=== PATIENT | male | born 1990 | race Caucasian/White ===

== ENCOUNTER 2017-09-26 22:10 | Emergency (ER) | payer MEDICAID, OTHER ==
[~2017-09-26] VITALS: Ht 175.3 cm; Wt 77.1 kg
[2017-09-26] MEDS ORDERED: ONDANSETRON 2MG/ML, 2ML ONE (23:51)
[2017-09-26] MEDS ORDERED: KETOROLAC 30 MG/1 ML ONE (23:51)
[2017-09-26 23:52] LABS: HEMATOCRIT 56.3 % (39.2-51.8); HEMOGLOBIN 19.2 g/dL (13.7-18.0); WHITE BLOOD COUNT 10.7 x10^3/uL (3.4-10)
[2017-09-27] MEDS ORDERED: ONDANSETRON 2MG/ML, 2ML IVPush ONE
[2017-09-27] MEDS ORDERED: KETOROLAC 30 MG/1 ML IVPush ONE
[2017-09-27 00:03] LABS: ASPARTATE AMINO TRANSFERASE 32 U/L (15-37); BLOOD UREA NITROGEN 18 mg/dL (7-18)
[2017-09-27] MEDS ORDERED: METOCLOPRAMIDE 5 MG/ML, 2ML ONE (01:19)
[2017-09-27] MEDS ORDERED: METOCLOPRAMIDE 5 MG/ML, 2ML IVPush ONE (01:30)
[2017-09-27] MEDS ORDERED: DIPHENHYDRAMINE 50 MG/ML, 1ML ONE (01:40)
[2017-09-27] MEDS ORDERED: DIPHENHYDRAMINE 50 MG/ML, 1ML IVPush ONE (02:00)
[2017-09-27] MEDS ORDERED: SODIUM CHLORIDE 0.9% 1,000ML IVBOLUS ONE ×2 (02:00)
[2017-09-27 03:50] VITALS: BP 95/62
== END 2017-09-27 04:11 | disposition home or self-care (01) ==
LOC: ED 23:10
DX: B34.9 Viral infection, unspecified (principal); N28.9 Disorder of kidney and ureter, unspecified
CPT/HCPCS: 36415; 80053; 84132; 85025; 96361; 96374; 96375; 99285; J1200; J1885; J2405; J2765; J7030

== ENCOUNTER 2017-12-09 09:58 | Day surgery (SDC) | payer MEDICAID ==
[~2017-12-09] VITALS: Ht 175.3 cm; Wt 76.2 kg
[2017-12-09 10:32] VITALS: BP 118/78
[2017-12-09] MEDS ORDERED: HYDR-3240 PO (10:39)
[2017-12-09] MEDS ORDERED: LACTATED RINGERS 1,000 ML IV SCH (10:39)
[2017-12-09] MEDS ORDERED: LIDOCAINE 1%, 2ML ONE (10:40)
[2017-12-09] MEDS ORDERED: EPINEPHRINE 1 MG/ML, 1ML ONE (10:56)
[2017-12-09] MEDS ORDERED: NEOSPORIN OINT, 15GM ONE (10:56)
[2017-12-09] MEDS ORDERED: BUPIVACAINE/PF 0.5% ONE (10:56)
[2017-12-09] MEDS ORDERED: LIDOCAINE 1%, 2ML SQ PRN (11:00)
[2017-12-09] MEDS ORDERED: SUCCINYLCHOLINE 20 MG/ML, 10ML ONE (11:11)
[2017-12-09] MEDS ORDERED: CEFAZOLIN 1,000 MG ONE (11:11)
[2017-12-09] MEDS ORDERED: PROPOFOL 10 MG/ML, 20ML ONE (11:11)
[2017-12-09] MEDS ORDERED: DEXAMETHASONE 4 MG/ML, 1ML ONE (11:11)
[2017-12-09] MEDS ORDERED: ONDANSETRON 2MG/ML, 2ML ONE (11:11)
[2017-12-09] MEDS ORDERED: NEOSTIGMINE 1 MG/ML, 10ML ONE (11:11)
[2017-12-09] MEDS ORDERED: GLYCOPYRROLATE 0.2MG/1ML, 5ML ONE (11:11)
[2017-12-09] MEDS ORDERED: ROCURONIUM 10 MG/ML,10ML ONE (11:11)
[2017-12-09] MEDS ORDERED: ACETAMINOPHEN 325 MG TABLET PO PRN (12:00)
[2017-12-09] MEDS ORDERED: DIAZEPAM 5 MG/ML, 2ML IVPush PRN (12:00)
[2017-12-09] MEDS ORDERED: MEPERIDINE/PF 25MG/0.5ML IVPush PRN (12:00)
[2017-12-09] MEDS ORDERED: EPHEDRINE 50 MG/ML, 1ML IVPush PRN (12:00)
[2017-12-09] MEDS ORDERED: HYDROcodone/APAP 7.5-325MG/15ML UDC PO PRN (12:00)
[2017-12-09] MEDS ORDERED: PROMETHAZINE 12.5 MG SUPP PR PRN (12:00)
[2017-12-09] MEDS ORDERED: LABETALOL 5MG/ML, 20ML IV PRN (12:00)
[2017-12-09] MEDS ORDERED: ALBUTEROL SULFATE 2.5 MG/3 ML NPPB PRN (12:00)
[2017-12-09] MEDS ORDERED: METOPROLOL 1 MG/ML, 5ML IV PRN (12:00)
[2017-12-09] MEDS ORDERED: MIDAZOLAM 1 MG/ML, 2ML IV PRN (12:00)
[2017-12-09] MEDS ORDERED: OXYcodone 5 MG/5 ML ORAL.SOL UDC PO PRN (12:00)
[2017-12-09] MEDS ORDERED: hydrALAzine 20 MG/ML, 1ML IV PRN (12:00)
[2017-12-09] MEDS ORDERED: ONDANSETRON 2MG/ML, 2ML IVPush PRN (12:00)
[2017-12-09] MEDS ORDERED: FENTANYL PF 100 MCG/2ML IV PRN (12:00)
[2017-12-09] MEDS ORDERED: HYDROmorphone 1 MG/ML, 1ML IV PRN (12:00)
[2017-12-09] MEDS ORDERED: ACETAMINOPHEN 650 MG/20.3 ML UDC ONE (12:46)
[2017-12-09] MEDS ORDERED: OXYcodone 5 MG/5 ML ORAL.SOL UDC ONE (12:46)
== END 2017-12-09 14:45 ==
LOC: OUT 09:58
PROVIDERS: ATTEND Orthopaedic Surgery
DX: S42.002A Fracture of unspecified part of left clavicle, initial encounter for closed fracture (principal); X58.XXXA Exposure to other specified factors, initial encounter; Y93.89 Activity, other specified; Y92.89 Other specified places as the place of occurrence of the external cause; Y99.8 Other external cause status
CPT/HCPCS: 23515; 73000; 76000; J0171; J0330; J0690; J1100; J2405; J2704; J2710; J3490; J7120; C1713

== ENCOUNTER 2018-07-26 15:56 | Emergency (ER) | payer MEDICAID ==
[~2018-07-26] VITALS: Ht 175.3 cm; Wt 77.0 kg
[~2018-07-26 15:56] MED LIST: HYDR-3240 PO
[2018-07-26 16:22] LABS: BASOPHILS # (AUTO) 0.06 x10^3/uL (0-0.1); BASOPHILS % (AUTO) 1 % (0-1); EOSINOPHILS # (AUTO) 0.04 x10^3/uL (0-0.4); EOSINOPHILS % (AUTO) 1 % (1-7); LYMPHOCYTES % (AUTO) 28 % (22-44); MD NO; MEAN CORPUSCULAR HEMOGLOBIN 31.2 pg (27.5-34.5); MEAN CORPUSCULAR HGB CONC 33.9 g/dL (33.2-36.2); MEAN PLATELET VOLUME 7.7 fL (7.4-10.4); MONOCYTES # (AUTO) 0.48 x10^3/uL (0.2-0.8); MONOCYTES % (AUTO) 9 % (2-9); NEUTROPHILS # (AUTO) 3.37 x10^3/uL (1.8-6.8); NEUTROPHILS % (AUTO) 62 % (42-75); PLATELET COUNT 251 x10^3/uL (130-400); RED BLOOD COUNT 4.99 x10^6/uL (4.38-5.82); RED CELL DISTRIBUTION WIDTH 13.1 % (9.4-14.8)
[2018-07-26 16:31] LABS: ALANINE AMINOTRANSFERASE 61 U/L (12-78); ALBUMIN 4.1 g/dL (3.4-5.0); ANION GAP 8 mmol/L (5-15); CALCIUM 9.4 mg/dL (8.5-10.1); CHLORIDE 109 mmol/L (98-107); CREATININE 1.05 mg/dL (0.7-1.3)
[2018-07-26 16:33] LABS: ALKALINE PHOSPHATASE 92 U/L (45-117); BILIRUBIN,TOTAL 0.3 mg/dL (0.2-1.0); TOTAL PROTEIN 7.3 g/dL (6.4-8.2)
[2018-07-26] MEDS ORDERED: LORazepam 1MG TABLET ONE (16:58)
[2018-07-26] MEDS ORDERED: MAALOX/HYOSCYAMINE/LIDOCAINE 45 ML BTL ONE (16:59)
[2018-07-26] MEDS ORDERED: MAALOX/HYOSCYAMINE/LIDOCAINE 45 ML BTL PO ONE (17:00)
[2018-07-26] MEDS ORDERED: LORazepam 1MG TABLET PO ONE (17:00)
[2018-07-26] MEDS ORDERED: SODIUM CHLORIDE 0.9% 1,000ML IVBOLUS ONE (17:30)
[2018-07-26] MEDS ORDERED: MORPHINE SULFATE 4 MG/ML, 1ML IVPush PRN (17:30)
[2018-07-26] MEDS ORDERED: SODIUM CHLORIDE FLUSH 10ML SYR IVF ONE (17:30)
[2018-07-26] MEDS ORDERED: MORPHINE SULFATE 4 MG/ML, 1ML ONE (17:47)
[2018-07-26 18:29] VITALS: BP 162/74
== END 2018-07-26 18:34 | disposition home or self-care (01) ==
LOC: ED 18:00
DX: R07.89 Other chest pain (principal); R06.02 Shortness of breath; F41.1 Generalized anxiety disorder
CPT/HCPCS: 36415; 71046; 80053; 83690; 83735; 85025; 96374; 99285; J7030

== ENCOUNTER 2018-08-16 11:24 | Emergency (ER) | payer MEDICAID ==
[~2018-08-16] VITALS: Ht 172.7 cm; Wt 76.3 kg
[2018-08-16] MEDS ORDERED: ONDANSETRON ODT 4 MG PO ONE (12:00)
[2018-08-16] MEDS ORDERED: ONDANSETRON ODT 4 MG ONE (12:02)
[2018-08-16 12:34] LABS: BASOPHILS # (AUTO) 0.03 x10^3/uL (0-0.1); BASOPHILS % (AUTO) 1 % (0-1); EOSINOPHILS # (AUTO) 0.02 x10^3/uL (0-0.4); EOSINOPHILS % (AUTO) 0 % (1-7); LYMPHOCYTES # (AUTO) 1.36 x10^3/uL (1-3.4); LYMPHOCYTES % (AUTO) 19 % (22-44); MD NO; MEAN CORPUSCULAR HEMOGLOBIN 31.9 pg (27.5-34.5); MEAN CORPUSCULAR HGB CONC 34.5 g/dL (33.2-36.2); MEAN CORPUSCULAR VOLUME 92.5 fL (81-97); MEAN PLATELET VOLUME 8.2 fL (7.4-10.4); MONOCYTES # (AUTO) 0.44 x10^3/uL (0.2-0.8); MONOCYTES % (AUTO) 6 % (2-9); NEUTROPHILS # (AUTO) 5.19 x10^3/uL (1.8-6.8); NEUTROPHILS % (AUTO) 74 % (42-75); PLATELET COUNT 236 x10^3/uL (130-400); RED BLOOD COUNT 5.33 x10^6/uL (4.38-5.82); RED CELL DISTRIBUTION WIDTH 12.9 % (9.4-14.8)
[2018-08-16 12:45] LABS: ALBUMIN 4.6 g/dL (3.4-5.0); ANION GAP 5 mmol/L (5-15); CALCIUM 9.7 mg/dL (8.5-10.1); CHLORIDE 105 mmol/L (98-107)
[2018-08-16 12:48] LABS: ALANINE AMINOTRANSFERASE 48 U/L (12-78); ALKALINE PHOSPHATASE 89 U/L (45-117); BILIRUBIN,TOTAL 0.6 mg/dL (0.2-1.0); CREATININE 1.19 mg/dL (0.7-1.3); TOTAL PROTEIN 8.3 g/dL (6.4-8.2)
[2018-08-16 12:59] VITALS: BP 140/91
== END 2018-08-16 13:40 | disposition home or self-care (01) ==
LOC: ED 13:34
DX: R11.2 Nausea with vomiting, unspecified (principal); R19.7 Diarrhea, unspecified; R10.84 Generalized abdominal pain; F41.1 Generalized anxiety disorder
CPT/HCPCS: 36415; 80053; 83690; 85025; 99284; Q0162

== ENCOUNTER 2019-09-16 18:08 | Inpatient (IN) | payer MEDICAID ==
[~2019-09-16] VITALS: Ht 175.3 cm; Wt 73.3 kg
--- NOTE | 2019-09-16 18:22 | NUR ---
ATTEMPTED TO CALL PT TO TRIAGE FOR EKG- NIL.
[2019-09-16] MEDS ORDERED: MORPHINE SULFATE 4 MG/ML, 1ML ONE ×2 (19:51→21:09)
[2019-09-16] MEDS: MORPHINE SULFATE 4 MG/ML, 1ML IVPush PRN ×2 (19:55→21:11)
[2019-09-16] MEDS ORDERED: VANCOMYCIN PER PHARMACY MC ONE (20:00)
[2019-09-16] MEDS ORDERED: AMPICILLIN/SULBACTAM 3 GM in SODIUM CHLORIDE 0.9% 100 ML IV ONE (20:00)
[2019-09-16] MEDS ORDERED: VANCOMYCIN 1,400 MG in SODIUM CHLORIDE 0.9% 250 ML IV ONE (20:00)
[2019-09-16] MEDS ORDERED: SODIUM CHLORIDE 0.9% 1,000ML IVBOLUS ONE ×2 (20:00→22:00)
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
[2019-09-16 20:15] LABS: BASOPHILS # (AUTO) 0.03 x10^3/uL (0-0.1); BASOPHILS % (AUTO) 0 % (0-1); EOSINOPHILS % (AUTO) 0 % (1-7); LYMPHOCYTES # (AUTO) 0.94 x10^3/uL (1-3.4); LYMPHOCYTES % (AUTO) 7 % (22-44); MD NO; MEAN CORPUSCULAR HEMOGLOBIN 31.8 pg (27.5-34.5); MEAN CORPUSCULAR HGB CONC 33.4 g/dL (33.2-36.2); MEAN CORPUSCULAR VOLUME 95.2 fL (81-97); MEAN PLATELET VOLUME 8.2 fL (7.4-10.4); MONOCYTES # (AUTO) 0.93 x10^3/uL (0.2-0.8); MONOCYTES % (AUTO) 7 % (2-9); NEUTROPHILS # (AUTO) 12.22 x10^3/uL (1.8-6.8); NEUTROPHILS % (AUTO) 87 % (42-75); PLATELET COUNT 223 x10^3/uL (130-400); RED BLOOD COUNT 4.18 x10^6/uL (4.38-5.82); RED CELL DISTRIBUTION WIDTH 12.5 % (9.4-14.8)
[2019-09-16 20:18] LABS: ALBUMIN 2.8 g/dL (3.4-5.0); ANION GAP 3 mmol/L (5-15); CALCIUM 8.5 mg/dL (8.5-10.1); CHLORIDE 107 mmol/L (98-107); CREATININE 1.05 mg/dL (0.7-1.3)
--- NOTE | 2019-09-16 20:18 | NUR ---
XR DIFFUSE SOFT TISSUE SWELLING OVER THE DORSAL FOREFOOT. NO FX.
--- NOTE | 2019-09-16 21:06 | NUR ---
PT FEBRILE, C/O PAIN, WILL NOTIFY .
[2019-09-16] MEDS ORDERED: ACETAMINOPHEN 500 MG TABLET ONE (21:09)
[2019-09-16] MEDS ORDERED: ACETAMINOPHEN 500 MG TABLET PO ONE (21:30)
[2019-09-16] MEDS ORDERED: ACETAMINOPHEN 325 MG TABLET PO ONE (21:30)
--- NOTE | 2019-09-16 21:52 | NUR ---
PT AWARE OF ADMISSION. 2ND LITER HANGING. PT WAS RESTING CALMLY DROWSING, STS PAIN IS 9/10 WHEN ASKED BUT STS FEELS BETTER AFTER MORPHINE.
--- NOTE | 2019-09-16 22:07 | NUR ---
REPORT TO MALIKA RN 3 NE.
[2019-09-16 22:42] VITALS: BP 116/73
[2019-09-16] MEDS ORDERED: PHARMACOKINETIC MONITORING MC PRN (23:45)
[2019-09-16] MEDS ORDERED: PHARMACOKINETIC CONSULTATION MC ONE (23:45)
[2019-09-17] MEDS ORDERED: VANCOMYCIN PER PHARMACY MC PRN
[2019-09-17] MEDS: VANCOMYCIN 1,400 MG in SODIUM CHLORIDE 0.9% 250 ML IV SCH ×2 (00:13→12:36)
[2019-09-17] MEDS ORDERED: ONDANSETRON ODT 4 MG PO PRN (00:30)
[2019-09-17] MEDS ORDERED: DOCUSATE 100 MG CAPSULE PO PRN (00:30)
[2019-09-17] MEDS ORDERED: ACETAMINOPHEN 325 MG TABLET PO PRN (00:30)
[2019-09-17] MEDS ORDERED: TEMAZEPAM 15 MG CAPSULE PO PRN (00:30)
[2019-09-17] MEDS ORDERED: ENALAPRILAT 1.25 MG/ML, 2ML IVPush PRN (00:30)
[2019-09-17 00:59] VITALS: BP 112/72
[2019-09-17] MEDS: AMPICILLIN/SULBACTAM 3 GM in SODIUM CHLORIDE 0.9% 100 ML IV SCH ×4 (02:31→19:32)
[2019-09-17] MEDS: HYDROcodone/APAP 5/325 TABLET PO PRN ×4 (02:32→19:33)
[2019-09-17 08:00] VITALS: BP 120/80
[2019-09-17 14:00] VITALS: BP 141/76
[2019-09-17] MEDS ORDERED: KETOROLAC 30 MG/1 ML IVPush ONE (18:00)
[2019-09-17 19:54] VITALS: BP 130/79
[2019-09-18] MEDS: HYDROcodone/APAP 5/325 TABLET PO PRN ×5 (00:15→22:19)
[2019-09-18] MEDS: VANCOMYCIN 1,400 MG in SODIUM CHLORIDE 0.9% 250 ML IV SCH (00:16)
[2019-09-18 01:58] VITALS: BP 114/73
[2019-09-18] MEDS: AMPICILLIN/SULBACTAM 3 GM in SODIUM CHLORIDE 0.9% 100 ML IV SCH ×2 (03:02→08:17)
[2019-09-18 06:16] LABS: BASOPHILS # (AUTO) 0.03 x10^3/uL (0-0.1); BASOPHILS % (AUTO) 0 % (0-1); EOSINOPHILS # (AUTO) 0.14 x10^3/uL (0-0.4); EOSINOPHILS % (AUTO) 1 % (1-7); LYMPHOCYTES # (AUTO) 1.69 x10^3/uL (1-3.4); LYMPHOCYTES % (AUTO) 16 % (22-44); MD NO; MEAN CORPUSCULAR HEMOGLOBIN 31.6 pg (27.5-34.5); MEAN CORPUSCULAR HGB CONC 33.1 g/dL (33.2-36.2); MEAN CORPUSCULAR VOLUME 95.6 fL (81-97); MEAN PLATELET VOLUME 8.2 fL (7.4-10.4); MONOCYTES # (AUTO) 0.82 x10^3/uL (0.2-0.8); MONOCYTES % (AUTO) 8 % (2-9); NEUTROPHILS # (AUTO) 7.75 x10^3/uL (1.8-6.8); NEUTROPHILS % (AUTO) 74 % (42-75); PLATELET COUNT 203 x10^3/uL (130-400); RED BLOOD COUNT 4.23 x10^6/uL (4.38-5.82); RED CELL DISTRIBUTION WIDTH 12.5 % (9.4-14.8)
[2019-09-18 06:24] LABS: ANION GAP 3 mmol/L (5-15); CALCIUM 9.1 mg/dL (8.5-10.1); CHLORIDE 107 mmol/L (98-107)
[2019-09-18 07:08] VITALS: BP 125/81
[2019-09-18] MEDS: CEFTRIAXONE PMX 1GM/50ML 50 ML IV SCH (11:44)
[2019-09-18 12:01] VITALS: BP 107/69
[2019-09-18] MEDS: KETOROLAC 30 MG/1 ML IVPush SCH ×2 (12:41→17:51)
[2019-09-18 18:40] VITALS: BP 126/79
[2019-09-19] MEDS: KETOROLAC 30 MG/1 ML IVPush SCH ×4 (00:16→18:19)
[2019-09-19 00:20] VITALS: BP 114/73
[2019-09-19] MEDS: HYDROcodone/APAP 5/325 TABLET PO PRN ×5 (06:35→22:27)
[2019-09-19 06:57] VITALS: BP 127/83
[2019-09-19 08:26] LABS: BASOPHILS # (AUTO) 0.03 x10^3/uL (0-0.1); BASOPHILS % (AUTO) 0 % (0-1); EOSINOPHILS # (AUTO) 0.07 x10^3/uL (0-0.4); EOSINOPHILS % (AUTO) 1 % (1-7); LYMPHOCYTES # (AUTO) 1.66 x10^3/uL (1-3.4); LYMPHOCYTES % (AUTO) 15 % (22-44); MD NO; MEAN CORPUSCULAR HEMOGLOBIN 30.9 pg (27.5-34.5); MEAN CORPUSCULAR HGB CONC 32.8 g/dL (33.2-36.2); MEAN CORPUSCULAR VOLUME 94.2 fL (81-97); MEAN PLATELET VOLUME 7.6 fL (7.4-10.4); MONOCYTES # (AUTO) 0.88 x10^3/uL (0.2-0.8); MONOCYTES % (AUTO) 8 % (2-9); NEUTROPHILS # (AUTO) 8.45 x10^3/uL (1.8-6.8); NEUTROPHILS % (AUTO) 76 % (42-75); PLATELET COUNT 273 x10^3/uL (130-400); RED BLOOD COUNT 4.27 x10^6/uL (4.38-5.82); RED CELL DISTRIBUTION WIDTH 12.4 % (9.4-14.8)
[2019-09-19 08:35] LABS: ALANINE AMINOTRANSFERASE 43 U/L (12-78); ALBUMIN 2.6 g/dL (3.4-5.0); CALCIUM 9.2 mg/dL (8.5-10.1); CHLORIDE 106 mmol/L (98-107); CREATININE 0.87 mg/dL (0.7-1.3)
[2019-09-19 08:36] VITALS: BP 115/77
[2019-09-19 08:38] LABS: ALKALINE PHOSPHATASE 85 U/L (45-117); BILIRUBIN,TOTAL 0.3 mg/dL (0.2-1.0)
[2019-09-19 08:43] LABS: ANION GAP 6 mmol/L (5-15)
[2019-09-19] MEDS ORDERED: GADOTERATE 10 MMOL/20 ML SYR ONE (11:57)
[2019-09-19] MEDS: CEFTRIAXONE PMX 1GM/50ML 50 ML IV SCH (12:34)
[2019-09-19 12:50] VITALS: BP 123/78
[2019-09-19 19:15] VITALS: BP 130/78
[2019-09-20] MEDS: KETOROLAC 30 MG/1 ML IVPush SCH ×4 (00:07→17:05)
[2019-09-20 01:27] VITALS: BP 117/74
[2019-09-20] MEDS: HYDROcodone/APAP 5/325 TABLET PO PRN ×3 (06:18→17:06)
[2019-09-20 08:03] VITALS: BP 120/76
[2019-09-20 08:24] LABS: BASOPHILS # (AUTO) 0.04 x10^3/uL (0-0.1); BASOPHILS % (AUTO) 1 % (0-1); EOSINOPHILS # (AUTO) 0.08 x10^3/uL (0-0.4); EOSINOPHILS % (AUTO) 1 % (1-7); LYMPHOCYTES # (AUTO) 1.75 x10^3/uL (1-3.4); LYMPHOCYTES % (AUTO) 25 % (22-44); MD NO; MEAN CORPUSCULAR HEMOGLOBIN 30.8 pg (27.5-34.5); MEAN CORPUSCULAR VOLUME 93.4 fL (81-97); MEAN PLATELET VOLUME 7.6 fL (7.4-10.4); MONOCYTES # (AUTO) 0.64 x10^3/uL (0.2-0.8); MONOCYTES % (AUTO) 9 % (2-9); NEUTROPHILS # (AUTO) 4.43 x10^3/uL (1.8-6.8); NEUTROPHILS % (AUTO) 64 % (42-75); PLATELET COUNT 281 x10^3/uL (130-400); RED CELL DISTRIBUTION WIDTH 12.3 % (9.4-14.8)
[2019-09-20 08:27] LABS: ALANINE AMINOTRANSFERASE 47 U/L (12-78); ALBUMIN 2.6 g/dL (3.4-5.0); ANION GAP 5 mmol/L (5-15); CALCIUM 9.6 mg/dL (8.5-10.1); CHLORIDE 106 mmol/L (98-107); CREATININE 0.92 mg/dL (0.7-1.3)
[2019-09-20 08:29] LABS: ALKALINE PHOSPHATASE 75 U/L (45-117); BILIRUBIN,TOTAL 0.3 mg/dL (0.2-1.0); TOTAL PROTEIN 7.3 g/dL (6.4-8.2)
[2019-09-20] MEDS: CEFTRIAXONE PMX 1GM/50ML 50 ML IV SCH (12:19)
[2019-09-20 13:40] VITALS: BP 124/79
[2019-09-20] MEDS ORDERED: CEFTRIAXONE PMX 2GM/50ML 50 ML IV SCH (15:00)
[2019-09-20 19:44] VITALS: BP 126/80
[2019-09-21 00:27] VITALS: BP 135/87
[2019-09-21] MEDS: HYDROcodone/APAP 5/325 TABLET PO PRN ×2 (00:32→06:20)
[2019-09-21] MEDS: KETOROLAC 30 MG/1 ML IVPush SCH ×3 (00:33→11:52)
[2019-09-21 05:55] VITALS: BP 122/74
[2019-09-21 06:09] VITALS: BP 122/74
[2019-09-21] MEDS ORDERED: HYDR-3237 PO (10:29)
[2019-09-21] MEDS ORDERED: IBUP-1222 PO (10:29)
[2019-09-21] MEDS ORDERED: CEFD300C37 PO (10:29)
== END 2019-09-21 12:25 | disposition home or self-care (01) | DRG 872 ==
LOC: ED 21:41 → EDIP 21:56 → 3N 22:29 → DCLOUNGE 09-21 12:23
PROVIDERS: ADMIT Internal Medicine; ATTEND Hospitalist
DX: A41.9 Sepsis, unspecified organism (principal); L03.116 Cellulitis of left lower limb; F41.1 Generalized anxiety disorder
CPT/HCPCS: 36415; 80048; 80053; 80202; 82040; 83605; 85025; 87040; 87070; 87147; 87205; 93005; 96365; 99285; G0378; J0295; J0696; J1885; J3370; A9575; J2270; J7030; J7050

== ENCOUNTER 2019-11-08 12:39 | Emergency (ER) | payer MEDICAID ==
[~2019-11-08] VITALS: Ht 175.3 cm; Wt 74.0 kg
[~2019-11-08 12:39] MED LIST changes: +CEFD300C37 PO; +HYDR-3237 PO; +IBUP-1222 PO
[2019-11-08] MEDS ORDERED: SODIUM CHLORIDE FLUSH 10ML SYR IVF ONE (13:30)
--- NOTE | 2019-11-08 13:30 | NUR ---
PT TO RM FROM TRIAGE AT THIS TIME. PT PLACED ON ALL MOINTORING EQUIPMENT. PT WITH C/O "GOING TO CRAZY, I DRANK ENOUGHT TO KILL A HORSE" PT STATES HE HAS BEEN DRINKING FOR SEVERAL DAYS AND USING [employer] DRUGS INCLUDING HEROIN AND METH. PT STATES HE FEELS TIGHTNESS IN HIS CHEST AND HAVING HOT ATTACKS. PT DENIES SOB AT THIS TIME. ASKED PT IN DEPTH IF THIS WAS AN INTENTIONAL OD OR IF PT INDORCED ANY SI. PT DENIES THIS OR HX OR PAST ATTEMPTS. PT WITH HX BIPOLAR AND HAS BEEN OFF HIS MEDS FOR SEVERAL DAYS PER HIS REPORT
[2019-11-08 13:53] LABS: BASOPHILS # (AUTO) 0.02 x10^3/uL (0-0.1); BASOPHILS % (AUTO) 0 % (0-1); EOSINOPHILS # (AUTO) 0.04 x10^3/uL (0-0.4); EOSINOPHILS % (AUTO) 1 % (1-7); LYMPHOCYTES # (AUTO) 1.73 x10^3/uL (1-3.4); LYMPHOCYTES % (AUTO) 27 % (22-44); MD NO; MEAN CORPUSCULAR HEMOGLOBIN 30.9 pg (27.5-34.5); MEAN CORPUSCULAR HGB CONC 33.5 g/dL (33.2-36.2); MEAN CORPUSCULAR VOLUME 92.3 fL (81-97); MEAN PLATELET VOLUME 7.7 fL (7.4-10.4); MONOCYTES # (AUTO) 0.45 x10^3/uL (0.2-0.8); MONOCYTES % (AUTO) 7 % (2-9); NEUTROPHILS # (AUTO) 4.09 x10^3/uL (1.8-6.8); NEUTROPHILS % (AUTO) 65 % (42-75); PLATELET COUNT 282 x10^3/uL (130-400); RED BLOOD COUNT 4.81 x10^6/uL (4.38-5.82); RED CELL DISTRIBUTION WIDTH 13.1 % (9.4-14.8)
[2019-11-08 14:06] LABS: ALANINE AMINOTRANSFERASE 34 U/L (12-78); ALBUMIN 4.2 g/dL (3.4-5.0); ANION GAP 7 mmol/L (5-15); CALCIUM 9.5 mg/dL (8.5-10.1); CHLORIDE 104 mmol/L (98-107); CREATININE 1.04 mg/dL (0.7-1.3)
[2019-11-08 14:10] LABS: ALKALINE PHOSPHATASE 89 U/L (45-117); BILIRUBIN,TOTAL 0.3 mg/dL (0.2-1.0); TOTAL PROTEIN 7.7 g/dL (6.4-8.2); TROPONIN I < 0.015 ng/mL (0.000-0.045)
[2019-11-08] MEDS ORDERED: LORazepam 1MG TABLET ONE (14:24)
[2019-11-08] MEDS ORDERED: KETOROLAC 30 MG/1 ML ONE (14:24)
[2019-11-08 14:29] VITALS: BP 135/88
[2019-11-08] MEDS ORDERED: KETOROLAC 30 MG/1 ML IM ONE (14:30)
[2019-11-08] MEDS ORDERED: LORazepam 1MG TABLET PO ONE (14:30)
--- NOTE | 2019-11-08 14:34 | NUR ---
IN TO [facility] PT. ORDERS RECIEVED, PT MEDICATED PER MAR
--- NOTE | 2019-11-08 15:04 | NUR ---
PT ADVISED TO GET A RIDE HOME AND DO NOT DRIVE, PT STATES HE WILL CALL HIS FRIEND.
== END 2019-11-08 15:11 | disposition home or self-care (01) ==
LOC: ED 15:07
DX: F10.10 Alcohol abuse, uncomplicated (principal); F15.10 Other stimulant abuse, uncomplicated; F11.10 Opioid abuse, uncomplicated; F41.9 Anxiety disorder, unspecified; Y90.9 Presence of alcohol in blood, level not specified
CPT/HCPCS: 36415; 71045; 80053; 83690; 84484; 85025; 93005; 96372; 99284; J1885

== ENCOUNTER 2020-03-31 11:12 | Emergency (ER) | payer MEDICAID ==
[~2020-03-31] VITALS: Ht 175.3 cm; Wt 84.0 kg
--- NOTE | 2020-03-31 11:57 | NUR ---
PT BROUGHT BACK FROM TRIAGE WITH CHIEF COMPLAINT OF SOB & CP IINTERMITTENT FOR 1 WEEK, WORSENING AT 2 AM THIS MORNING. PT REPORTS METH AND ETOH 03/30.
[2020-03-31 12:00] VITALS: BP 135/89
[2020-03-31 12:19] LABS: BASOPHILS # (AUTO) 0.03 x10^3/uL (0-0.1); BASOPHILS % (AUTO) 0 % (0-1); EOSINOPHILS # (AUTO) 0.06 x10^3/uL (0-0.4); EOSINOPHILS % (AUTO) 1 % (1-7); LYMPHOCYTES # (AUTO) 2.07 x10^3/uL (1-3.4); LYMPHOCYTES % (AUTO) 31 % (22-44); MD NO; MEAN CORPUSCULAR HEMOGLOBIN 29.9 pg (27.5-34.5); MEAN CORPUSCULAR HGB CONC 33.3 g/dL (33.2-36.2); MEAN PLATELET VOLUME 7.8 fL (7.4-10.4); MONOCYTES # (AUTO) 0.59 x10^3/uL (0.2-0.8); MONOCYTES % (AUTO) 9 % (2-9); NEUTROPHILS # (AUTO) 4.01 x10^3/uL (1.8-6.8); NEUTROPHILS % (AUTO) 59 % (42-75); PLATELET COUNT 241 x10^3/uL (130-400); RED BLOOD COUNT 4.97 x10^6/uL (4.38-5.82); RED CELL DISTRIBUTION WIDTH 12.5 % (9.4-14.8)
[2020-03-31 12:32] LABS: ALBUMIN 3.9 g/dL (3.4-5.0); ANION GAP 6 mmol/L (5-15); CALCIUM 9.1 mg/dL (8.5-10.1); CHLORIDE 107 mmol/L (98-107)
[2020-03-31 12:37] LABS: CREATININE 1.22 mg/dL (0.7-1.3); TROPONIN I < 0.015 ng/mL (0.000-0.045)
[2020-03-31] MEDS ORDERED: HYDROXYZINE PAMOATE 50MG CAP PO ONE (13:00)
--- NOTE | 2020-03-31 13:18 | NUR ---
Discharge instructions reviewed.
== END 2020-03-31 13:27 | disposition home or self-care (01) ==
LOC: ED 12:15
DX: R07.89 Other chest pain (principal); F10.20 Alcohol dependence, uncomplicated; F15.20 Other stimulant dependence, uncomplicated; Y90.9 Presence of alcohol in blood, level not specified
CPT/HCPCS: 36415; 71045; 80048; 82040; 84484; 85025; 93005; 99285

== ENCOUNTER 2020-09-22 11:48 | Emergency (ER) | payer MEDICAID ==
[~2020-09-22] VITALS: Ht 175.3 cm; Wt 85.1 kg
[2020-09-22 12:11] VITALS: BP 144/102
[2020-09-22] MEDS ORDERED: ASPIRIN 81 MG TABLET CHEW PO ONE (12:30)
--- NOTE | 2020-09-22 14:24 | NUR ---
NOT IN LOBBY @ [id number], [phone]
== END 2020-09-22 14:25 | disposition left against medical advice (07) ==
LOC: ED 14:19
DX: R07.9 Chest pain, unspecified (principal); R06.02 Shortness of breath; R00.0 Tachycardia, unspecified
CPT/HCPCS: 93005; 99283

== ENCOUNTER 2020-11-14 03:43 | Emergency (ER) | payer MEDICAID ==
[~2020-11-14] VITALS: Ht 175.3 cm; Wt 85.5 kg
[~2020-11-14 03:43] MED LIST changes: +HYDR-1067 PO; -HYDR-3240 PO
[2020-11-14 03:45] VITALS: BP 149/100
--- NOTE | 2020-11-14 04:11 | NUR ---
ERP AT BEDSIDE
[2020-11-14] MEDS ORDERED: DIPH,PERTUSS(ACELL),TET VAC/PF 0.5 ML IM-VACC ONE ×2 (04:20→04:30)
--- NOTE | 2020-11-14 04:44 | NUR ---
Patient given discharge instructions and they have confirmed that they understand the instructions. Patient ambulatory with steady gait.
== END 2020-11-14 04:47 | disposition home or self-care (01) ==
LOC: ED 04:30
DX: S61.221A Laceration with foreign body of left index finger without damage to nail, initial encounter (principal); S61.213A Laceration without foreign body of left middle finger without damage to nail, initial encounter; F15.10 Other stimulant abuse, uncomplicated; W26.0XXA Contact with knife, initial encounter; Y93.89 Activity, other specified; Y92.89 Other specified places as the place of occurrence of the external cause; Y99.8 Other external cause status
CPT/HCPCS: 12001; 12002; 90471; 90715; 99283

== ENCOUNTER 2021-02-04 02:37 | Emergency (ER) | payer MEDICAID ==
[~2021-02-04] VITALS: Ht 175.3 cm; Wt 87.6 kg
[~2021-02-04 02:37] MED LIST changes: -HYDR-1067 PO; +HYDR-2214 PO
[2021-02-04 02:39] VITALS: BP 146/96
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
[2021-02-04] MEDS ORDERED: PROMETHAZINE 25 MG/ML, 1ML IM ONE (03:30)
[2021-02-04] MEDS ORDERED: PROMETHAZINE 25 MG/ML, 1ML ONE (03:32)
--- NOTE | 2021-02-04 03:34 | NUR ---
PT MEDICATED PER MAR FOR NAUSEA
--- NOTE | 2021-02-04 03:35 | NUR ---
Tech: suture tray set out and irrigation of wound done
== END 2021-02-04 05:05 | disposition home or self-care (01) ==
LOC: ED 03:55
DX: S06.0X0A Concussion without loss of consciousness, initial encounter (principal); S01.511A Laceration without foreign body of lip, initial encounter; F15.129 Other stimulant abuse with intoxication, unspecified; Z72.9 Problem related to lifestyle, unspecified; X58.XXXA Exposure to other specified factors, initial encounter; Y93.89 Activity, other specified; Y92.89 Other specified places as the place of occurrence of the external cause; Y99.8 Other external cause status
CPT/HCPCS: 12051; 70450; 96372; 99284; J2550

== ENCOUNTER 2021-04-21 06:11 | Emergency (ER) | payer MEDICAID ==
[~2021-04-21] VITALS: Ht 175.3 cm; Wt 83.9 kg
--- NOTE | 2021-04-21 06:45 | NUR ---
PT WALKED TO ROOM. MD SHOWN EKG. EKG DONE IN TRIAGE. MD ORDERED SOME ATIVAN 1MG PO, AND PT MEDICATED, AND PT ON O2 SAT PROBE AND BP.
[2021-04-21] MEDS ORDERED: KETOROLAC 30 MG/1 ML ONE (06:52)
[2021-04-21] MEDS ORDERED: SODIUM CHLORIDE FLUSH 10ML SYR IVF ONE (07:00)
[2021-04-21] MEDS ORDERED: SODIUM CHLORIDE 0.9% 1,000ML IVBOLUS ONE (07:00)
[2021-04-21] MEDS ORDERED: KETOROLAC 30 MG/1 ML IVPush ONE (07:00)
[2021-04-21] MEDS ORDERED: LORazepam 1MG TABLET PO ONE (07:00)
--- NOTE | 2021-04-21 07:07 | NUR ---
Pt states he drank and did meth and weed prior to coming to the hospital. Pt is cooperative, connected to all monitors. Asking for food and drink. States he'd love to be able to sleep but his brain is wheels are turning and he's unable to do so at this time.
[2021-04-21 08:26] VITALS: BP 127/83
--- NOTE | 2021-04-21 08:30 | NUR ---
Pt states he feels better prior to d/c. Provided with food and water at d/c.
== END 2021-04-21 08:41 | disposition home or self-care (01) ==
LOC: ED 07:36
DX: R07.89 Other chest pain (principal); F10.129 Alcohol abuse with intoxication, unspecified; F12.129 Cannabis abuse with intoxication, unspecified; Y90.0 Blood alcohol level of less than 20 mg/100 ml
CPT/HCPCS: 93005; 96361; 96374; 99283; J1885; J7030

== ENCOUNTER 2021-05-25 17:35 | Emergency (ER) | payer MEDICAID ==
[~2021-05-25] VITALS: Ht 175.3 cm; Wt 82.1 kg
[2021-05-25 17:58] VITALS: BP 141/80
[2021-05-25] MEDS ORDERED: LIDOCAINE-MPF 1%, 5ML ONE (18:17)
[2021-05-25] MEDS ORDERED: LIDOCAINE-MPF 1%, 5ML INFIL ONE (18:30)
[2021-05-25] MEDS ORDERED: BACITRACIN ZINC OINT 500U/GM, 0.9 GM ONE (18:43)
== END 2021-05-25 18:43 | disposition home or self-care (01) ==
LOC: ED 17:57
DX: S61.210A Laceration without foreign body of right index finger without damage to nail, initial encounter (principal); X58.XXXA Exposure to other specified factors, initial encounter; Y93.89 Activity, other specified; Y92.009 Unspecified place in unspecified non-institutional (private) residence as the place of occurrence of the external cause; Y99.8 Other external cause status
CPT/HCPCS: 12002; 99282

== ENCOUNTER 2021-06-18 17:17 | Emergency (ER) | payer MEDICAID ==
[~2021-06-18] VITALS: Ht 175.3 cm; Wt 81.0 kg
--- NOTE | 2021-06-18 17:27 | NUR ---
biba from walking to home. pt c/o of sob, cp, dizzyness, migraine, bodyaches and SI pt was out drinking all last night and doing meth. pt appears anxious. pt says he has thoughts of hurting himself by climmbing [place] and jumping off but has had no intention on going through with this plan. attached to card/sp02/bp [place]. vss. bed in [facility], changed in to gown, rails engaged. wctm
--- NOTE | 2021-06-18 17:56 | NUR ---
LATE ENTRY DUEN TO PT CARE./ EKG COMPLETED AT [facility]. EKG PRINT OUT GIVEN TO YEIMI
[2021-06-18 18:04] LABS: BASOPHILS % (AUTO) 1 % (0-1); EOSINOPHILS % (AUTO) 2 % (1-7); LYMPHOCYTES % (AUTO) 31 % (22-44); MEAN CORPUSCULAR HEMOGLOBIN 30.4 pg (27.5-34.5); MONOCYTES % (AUTO) 11 % (2-9); NEUTROPHILS % (AUTO) 56 % (42-75); PLATELET COUNT 193 x10^3/uL (130-400); RED BLOOD COUNT 4.73 x10^6/uL (4.38-5.82); RED CELL DISTRIBUTION WIDTH 13.1 % (9.4-14.8)
[2021-06-18 18:20] LABS: ALBUMIN 3.8 g/dL (3.4-5.0); ANION GAP 8 mmol/L (5-15); CALCIUM 8.9 mg/dL (8.5-10.1); CHLORIDE 105 mmol/L (98-107)
--- NOTE | 2021-06-18 18:20 | NUR ---
SPOKE TO CHARGE NURSE AND ERMD ABOUT PT SI THOUGHTS.
[2021-06-18 18:27] LABS: ALANINE AMINOTRANSFERASE 46 U/L (12-78); ALKALINE PHOSPHATASE 140 U/L (45-117); BILIRUBIN,TOTAL 0.7 mg/dL (0.2-1.0); CREATININE 1.04 mg/dL (0.7-1.3); TROPONIN I < 0.015 ng/mL (0.000-0.045)
[2021-06-18 18:53] VITALS: BP 126/92
== END 2021-06-18 19:27 | disposition home or self-care (01) ==
LOC: ED 17:54
DX: R07.89 Other chest pain (principal); F41.1 Generalized anxiety disorder; F15.10 Other stimulant abuse, uncomplicated; R06.02 Shortness of breath
CPT/HCPCS: 36415; 71045; 80053; 84484; 85025; 93005; 99283; 99285